=== PATIENT | female | born 1950 | race Caucasian/White ===

== ENCOUNTER 2017-10-01 09:53 | Emergency (ER) | payer OTHER, MEDICARE ==
[2017-10-01 11:33] LABS: ADD UMIC YES; UR ASCORBIC ACID 40 mg/dL (NEGATIVE); UR BACTERIA FEW /HPF (NONE SEEN); UR BILIRUBIN (Dip) NEGATIVE (NEGATIVE); UR BLOOD (Dip) NEGATIVE (NEGATIVE); UR CLARITY CLOUDY (CLEAR); UR COLOR YELLOW (YELLOW); UR GLUCOSE (Dip) NEGATIVE (NEGATIVE); UR KETONES (Dip) NEGATIVE (NEGATIVE); UR LEUKOCYTE ESTERASE (Dip) 3+ Leu/ul (NEGATIVE); UR MUCUS FEW /HPF (NONE SEEN); UR NITRITE (Dip) NEGATIVE (NEGATIVE); UR NONSQUAMOUS EPITHELIAL CELL 2 /HPF (NONE SEEN); UR RBC 8 /HPF (0-5); UR TOTAL PROTEIN (Dip) 1+ mg/dl (NEGATIVE); UR UROBILINOGEN (Dip) NEGATIVE (NEGATIVE); UR WBC > 182 /HPF (0-5)
[2017-10-01] MEDS: GUAIFENESIN 20 MG/ML 5ML CUP PO (11:43)
== END 2017-10-01 12:03 | disposition home or self-care (01) ==
LOC: FTE 09:53
DX: J40 Bronchitis, not specified as acute or chronic (principal); N39.0 Urinary tract infection, site not specified; I10 Essential (primary) hypertension
CPT/HCPCS: 71046; 81001; 87086; 93005; 99285-25

== ENCOUNTER 2017-10-04 09:39 | Emergency (ER) | payer OTHER ==
[2017-10-04] MEDS: DIPHENHYDRAMINE 25 MG CAP PO (11:57)
== END 2017-10-04 12:56 | disposition home or self-care (01) ==
LOC: FTE 09:39
DX: R21 Rash and other nonspecific skin eruption (principal); T36.1X5A Adverse effect of cephalosporins and other beta-lactam antibiotics, initial encounter; N39.0 Urinary tract infection, site not specified; J45.909 Unspecified asthma, uncomplicated; I10 Essential (primary) hypertension
CPT/HCPCS: 99283